=== PATIENT | male | born 1955 | race Caucasian/White ===

== ENCOUNTER 2022-08-15 11:19 | Inpatient (IN) ==
[2022-08-15] MEDS ORDERED: NS 1,000 ML IV 1,000 ML IV SCH (12:23)
[2022-08-15] MEDS ORDERED: XOPENEX 1.25 MG/3 ML NEBULE NEB SCH (12:23)
[2022-08-15] MEDS ORDERED: XOPENEX 1.25 MG/3 ML NEBULE NEB PRN (12:23)
[2022-08-15] MEDS ORDERED: Atrovent NEB TX 0.02% NEB SCH (12:23)
[2022-08-15] MEDS ORDERED: ROCEPHIN 1 GRAM IV PREMIX 1 G/50 ML IV.SOLN. IV SCH (12:23)
[2022-08-15] MEDS: ROCEPHIN VIAL 1 GRAM 1 G in NS 100 ML IV 100 ML IV SCH (12:55)
[2022-08-15] MEDS: TYLENOL 325 MG TAB PO PRN ×2 (12:55→23:25)
[2022-08-15 13:14] LABS: ABG BASE EXCESS 6.2 mmol/L (-2.0-2.0); ABG HCO3 29.5 mmol/L (22-26)
[2022-08-15 13:17] LABS: BASOPHILS # (AUTO) 0.2 X10^3/uL (0.0-0.1); BASOPHILS % (AUTO) 0.7 % (0.2-1.0); EOSINOPHILS # (AUTO) 0.1 x10^3/uL (0.0-0.2); EOSINOPHILS % (AUTO) 0.2 % (0.9-2.9); HEMATOCRIT 33.6 % (42.0-54.0); HEMOGLOBIN 11.1 g/dL (13.5-18.0); LYMPHOCYTES # (AUTO) 1.9 X10^3/uL (1.3-2.9); LYMPHOCYTES % (AUTO) 6.9 % (21.0-51.0); MEAN CORPUSCULAR HEMOGLOBIN 29.7 pg (27.0-34.0); MEAN CORPUSCULAR HGB CONC 33.2 g/dL (33.0-35.0); MEAN CORPUSCULAR VOLUME 89.6 fL (80.0-100.0); MONOCYTES # (AUTO) 3.1 x10^3/uL (0.3-0.8); MONOCYTES % (AUTO) 11.4 % (0.0-13.0); NEUTROPHILS # (AUTO) 21.9 x10^3/uL (2.2-4.8); NEUTROPHILS % (AUTO) 80.8 % (42.0-75.0); RED BLOOD COUNT 3.75 X10^6/uL (4.7-6.0); RED CELL DISTRIBUTION WIDTH 14.5 % (11.6-16.5); WHITE BLOOD COUNT 27.1 X10^3/uL (3.6-10.0)
[2022-08-15 13:31] LABS: PLATELET MORPHOLOGY COMMENT NORMAL (NORMAL)
[2022-08-15] MEDS: PULMICORT NEB TX 0.5 MG NEB SCH ×2 (13:33→20:15)
[2022-08-15] MEDS: BROVANA IN SCH ×2 (13:35→20:15)
[2022-08-15] MEDS: ZITHROMAX INJ 500 MG VIAL 500 MG in NS 250 ML IV 250 ML IV SCH (13:45)
[2022-08-15 14:06] LABS: ALBUMIN 1.4 g/dL (3.4-5.0); CALCIUM 7.5 mg/dL (8.5-10.1); CARBON DIOXIDE 28.4 mmol/L (21-32); COR CA(FOR HYPOALB) 9.6 mg/dL (8.5-10.1); CREATININE 1.74 mg/dL (0.70-1.30); TOTAL PROTEIN 5.9 g/dL (6.4-8.2)
[2022-08-15] MEDS ORDERED: NS 1,000 ML IV 1,000 ML IV ONE ×4 (14:40→20:32)
[2022-08-15 15:50] LABS: BILIRUBIN,URINE 2+ (NEGATIVE); BLOOD/HEMOGLOBIN,URINE 1+ (NEGATIVE); GLUCOSE, URINE NEGATIVE (NEGATIVE); KETONES,URINE NEGATIVE (NEGATIVE); LEUKOCYTE ESTERASE ,URINE NEGATIVE (NEGATIVE); NITRITES,URINE NEGATIVE (NEGATIVE); PROTEIN,URINE 2+ (NEGATIVE); UROBILINOGEN,URINE 4+ (NORMAL)
[2022-08-15 16:08] LABS: APPEARANCE,URINE CLOUDY (CLEAR); COLOR,URINE AMBER (YELLOW)
[2022-08-15 16:32] LABS: BACTERIA,URINE TRACE /HPF (NEGATIVE); RBC,URINE 0-2 /HPF (0-3); SQUAMOUS EPITHELIAL CELL,UR RARE /HPF (NEGATIVE)
[2022-08-15 16:33] LABS: RENAL EPITHELIAL CELLS,URINE RARE /HPF (NEGATIVE)
[2022-08-15 16:35] LABS: GRANULAR CASTS,URINE MODERATE /LPF (NEGATIVE)
[2022-08-15] MEDS ORDERED: XOPENEX 1.25 MG/3 ML NEBULE NEB ONE (16:36)
[2022-08-15] MEDS ORDERED: LEVOPHED 8 MG/250 ML IV *PREMIX 8 MG/250 ML PLAST..BAG IV PRN ×2 (17:03→22:35)
[2022-08-15] MEDS: XOPENEX 1.25 MG/3 ML NEBULE NEB SCH (17:04)
--- NOTE | 2022-08-15 17:06 | RAD ---
CHEST, 1 VIEWHISTORY: COPD EXACERBATIONStudy: AP view of the chest.Comparison:NoneFindings:The cardiomediastinal silhouette is normal. Multifocal opacities in the right lung. Osseous structures demonstrate no acute abnormality. Bilateral hyperexpansion and interstitial prominence.IMPRESSION:1. Multifocal opacities in the right lung concerning for pneumonia.2. Findings of COPD.Electronically signed by: PURA PATINO (Aug 15, 2022 17:05:46)
[2022-08-15] MEDS ORDERED: D5W 100 ML IV 100 ML IV ONE (20:58)
[2022-08-15] MEDS ORDERED: TOBRAMYCIN SULFATE ONE (20:58)
[2022-08-15] MEDS ORDERED: DILANTIN CAP 100 MG EXT REL PO ONE (20:58)
[2022-08-15] MEDS ORDERED: DILANTIN INFATAB 50 MG PO SCH (21:00)
[2022-08-15] MEDS: ARICEPT TAB 10 MG PO SCH (21:06)
[2022-08-15] MEDS: DILANTIN CAP 100 MG EXT REL PO SCH (21:06)
[2022-08-15] MEDS: BUSPAR PO SCH (21:07)
[2022-08-15] MEDS: TOBRAMYCIN SULFATE 80 MG in NS 100 ML IV 100 ML IV SCH (21:19)
[2022-08-15] MEDS ORDERED: PATIENT'S HOME MEDICATION (Alprazolam 0.5 mg tablet) PO PRN (21:36)
[2022-08-15] MEDS: NS 1,000 ML IV 1,000 ML IV SCH (21:38)
--- NOTE | 2022-08-15 22:18 | DR.H&P ---
H&P - History & Physical for Day of: H&P Date: 08/15/22 - Chief Complaint Chief Complaint: SICK X 2 WEEKS, WEAK, CONGESTED COUGH, nOT EATING - History of Present Illness History of Present Illness: The patient is a 66yo WM who presented to [facility] with his brother and [id number] with complaints of not feeling well x 2 weeks. States he had been sick at his sister's house for almost a week with URI symptoms prior to coming back to their house. Complains of pleuric chest pain. State he has been in the bed for the last week. States that he is not eating. State he has not been smoking either. Does complain of congested cough but not productive. State he hs not had fever. Denies family he has been with as being sick. Does state that he is so weak he can hardly walk. Family is concerned due to weight loss. Patient has lost 3 lbs in 3 mths. Patient has history of TBI and seizures, which have been stable. No other complaints voiced. - Past Medical History Past Medical History: Hypertension, Seizures Additional Medical History: TBI - Past Surgical History Surgical History: Spleenectomy, Other - Family History Family Medical History: Cancer, Hypertension - Social History Does patient currently use any type of tobacco product: Yes Have you used tobacco products in the last 12 months: Yes Type of Tobacco Use: Cigarettes Does any household member use tobacco: Yes Alcohol Use: None Drug Use: None Prescription drug monitoring program results: PDMP reviewed and no concerns identified - Medications Home Medications: No Known Allergies Allergy (Verified 08/15/22 12:33) CONTINUE taking the following medications alprazolam 0.5 mg tablet 0.5 mg PO QDAY PRN 08/15/22 [History] buspirone 10 mg tablet 10 mg PO BID 08/15/22 [History] donepezil 10 mg tablet 10 mg PO DAILY 08/15/22 [History] gabapentin 800 mg tablet 800 mg PO BID 08/15/22 [History] loratadine 10 mg tablet 10 mg PO DAILY 08/15/22 [History] losartan 25 mg tablet 25 mg PO DAILY 08/15/22 [History] meloxicam 15 mg tablet 15 mg PO DAILY 08/15/22 [History] omeprazole 40 mg capsule,delayed release 40 mg PO DAILY 08/15/22 [History] phenytoin sodium extended 100 mg capsule 100 mg PO BID 08/15/22 [History] tamsulosin 0.4 mg capsule 0.4 mg PO HS 08/15/22 [History] - Review of Systems Constitutional: Weakness, Malaise Eyes: No Symptoms Reported ENT: No Symptoms Reported Respiratory: Cough, Wheezing Cardiovascular: Chest Pain Gastrointestinal: No Symptoms Reported Genitourinary: No Symptoms Reported Musculoskeletal: No Symptoms Reported Skin: No Symptoms Reported Neurological: Weakness - Physical Exam Vital Signs: Temperature 98.5 F Pulse Rate 103 Respiratory Rate 29 Blood Pressure 88/54 O2 Sat by Pulse Oximetry 94 Oriented: Normal Eyes: Normal Ear: Normal Nose: Normal Throat: Normal Respiratory: LLL Diminished, RLL Rhonchi, RUL Exp. Wheeze Cardiovascular: Tachycardia : Normal Auscultation: Bowel Sounds: Normal Palpation: Normal Tenderness: Normal Skin: Decreased Turgur Musculoskeletal: Normal, Back:Lumbar Psychiatric: Normal Mood Description: Calm Speech Pattern: Delayed - Assessment/Plan (1) Sepsis Status: Acute Plan: IV Bolus/Hydration, IV antibiotic, Oxygen replacement, Monitor labs, Monitor vital signs (2) Pneumonia Qualifiers: Laterality: right Lung location: lower lobe of lung Status: Acute Plan: IV anibiotics. Oxygen therapy. (3) Hypotension Status: Acute Plan: IV bolus/hydration. Hold home BP meds, IV antibiotics (4) Acute kidney failure Status: Acute Plan: IV hydration, Monitor labs. (5) Acute respiratory failure with hypoxia Status: Acute Plan: Oxygen supplementation, Monitor ABGs - Review Patient was examined?: Yes - Allergies Allergies/Adverse Reactions: Allergies Allergy/AdvReac Type Severity Reaction Status Date / Time No Known Allergies Allergy Verified 08/15/22 12:33
[2022-08-15] MEDS ORDERED: LEVOPHED 8 MG/250 ML IV *PREMIX 8 MG/250 ML PLAST..BAG IV ONE (22:38)
[2022-08-15] MEDS ORDERED: MORPHINE SULFATE INJ 2 MG INJ IVP ONE (23:16)
[2022-08-15] MEDS ORDERED: MORPHINE SULFATE INJ 2 MG INJ ONE (23:18)
[2022-08-16] MEDS: XOPENEX 1.25 MG/3 ML NEBULE NEB SCH ×5 (00:12→18:14)
[2022-08-16 02:18] LABS: EOSINOPHILS # (AUTO) 0.1 x10^3/uL (0.0-0.2); EOSINOPHILS % (AUTO) 0.2 % (0.9-2.9); HEMOGLOBIN 10.1 g/dL (13.5-18.0)
[2022-08-16 02:23] LABS: BASOPHILS # (AUTO) 0.4 X10^3/uL (0.0-0.1); BASOPHILS % (AUTO) 1.4 % (0.2-1.0); HEMATOCRIT 30.5 % (42.0-54.0); LYMPHOCYTES # (AUTO) 2.8 X10^3/uL (1.3-2.9); MEAN CORPUSCULAR HEMOGLOBIN 29.5 pg (27.0-34.0); MEAN CORPUSCULAR HGB CONC 33.1 g/dL (33.0-35.0); MEAN CORPUSCULAR VOLUME 89.1 fL (80.0-100.0); MEAN PLATELET VOLUME 8.5 fL (7.4-11.0); MONOCYTES # (AUTO) 3.1 x10^3/uL (0.3-0.8); MONOCYTES % (AUTO) 9.9 % (0.0-13.0); NEUTROPHILS # (AUTO) 25.2 x10^3/uL (2.2-4.8); NEUTROPHILS % (AUTO) 79.5 % (42.0-75.0); RED BLOOD COUNT 3.43 X10^6/uL (4.7-6.0); RED CELL DISTRIBUTION WIDTH 14.4 % (11.6-16.5)
[2022-08-16 02:26] LABS: ALBUMIN 1.1 g/dL (3.4-5.0); CALCIUM 6.7 mg/dL (8.5-10.1); CREATININE 1.59 mg/dL (0.70-1.30); TOTAL PROTEIN 5.1 g/dL (6.4-8.2)
[2022-08-16 02:35] LABS: WHITE BLOOD COUNT 31.7 X10^3/uL (3.6-10.0)
[2022-08-16 02:46] LABS: BAND NEUTROPHILS % 5 % (0-10); PLATELET MORPHOLOGY COMMENT NORMAL (NORMAL); TARGET CELLS SLIGHT
[2022-08-16 02:48] LABS: BURR CELLS SLIGHT
[2022-08-16] MEDS: MAGNESIUM SULFATE 1 GRAM/100 mL PREMIX 1 G/100 ML BAG IV PRN ×6 (04:38→13:30)
--- NOTE | 2022-08-16 06:42 | RAD ---
HISTORYCOPD EXACERBATIONSTUDYCHEST, 1 EUOSAOLBAUGNRE68/02/2023.TECHNIQUEPA or AP view of the chestFINDINGSCardiac and mediastinal contours are within normal limits. Lung hyper expansion re-demonstrated. There is a moderate right pleural effusion. Diffuse bilateral interstitial opacities. Right mid to lower lung airspace opacities. No pneumothorax.IMPRESSIONCOPD. Development of moderate right pleural effusion. Right base airspace opacities suspicious for pneumonia. Recommend follow up imaging to document resolution after appropriate treatment.If there is need to evaluate for pulmonary nodules, CT chest is recommended.Electronically signed by: John Matute (Aug 16, 2022 06:40:55)
[2022-08-16 08:42] LABS: ABG ALLEN TEST POS; ABG BASE EXCESS 2.4 mmol/L (-2.0-2.0); ABG HCO3 26.4 mmol/L (22-26)
[2022-08-16] MEDS: PULMICORT NEB TX 0.5 MG NEB SCH ×2 (08:54→20:10)
[2022-08-16] MEDS: BROVANA IN SCH ×2 (08:54→20:10)
[2022-08-16] MEDS ORDERED: BUSPAR PO SCH (09:00)
[2022-08-16] MEDS ORDERED: NEURONTIN CAP 400 MG PO SCH (09:00)
[2022-08-16] MEDS ORDERED: MOBIC TAB 15 MG PO SCH (09:00)
[2022-08-16] MEDS ORDERED: PriLOSEC PO SCH (09:00)
[2022-08-16] MEDS ORDERED: DILANTIN CAP 100 MG EXT REL PO SCH (09:00)
[2022-08-16] MEDS ORDERED: ARICEPT TAB 10 MG PO SCH (09:00)
[2022-08-16] MEDS ORDERED: COZAAR PO SCH (09:00)
[2022-08-16] MEDS ORDERED: CLARITIN PO SCH (09:00)
[2022-08-16] MEDS ORDERED: LASIX IVP ONE (09:12)
[2022-08-16] MEDS: ROCEPHIN VIAL 1 GRAM 1 G in NS 100 ML IV 100 ML IV SCH (10:16)
[2022-08-16] MEDS: PriLOSEC PO SCH (10:19)
[2022-08-16] MEDS: MOBIC TAB 15 MG PO SCH (10:19)
[2022-08-16] MEDS: ROBITUSSIN DM PO SCH ×4 (10:19→20:11)
[2022-08-16] MEDS: TOBRAMYCIN SULFATE 80 MG in NS 100 ML IV 100 ML IV SCH ×2 (10:20→20:25)
[2022-08-16] MEDS: DILANTIN CAP 100 MG EXT REL PO SCH ×2 (10:20→20:12)
[2022-08-16] MEDS: NS 1,000 ML IV 1,000 ML IV SCH (10:20)
[2022-08-16] MEDS: ZITHROMAX INJ 500 MG VIAL 500 MG in NS 250 ML IV 250 ML IV SCH (10:20)
[2022-08-16] MEDS: CLARITIN PO SCH (10:20)
[2022-08-16] MEDS: XANAX PO PRN (10:20)
[2022-08-16] MEDS: BUSPAR PO SCH ×2 (10:21→20:25)
[2022-08-16] MEDS: NICOTINE PATCH TD SCH (12:16)
[2022-08-16] MEDS: LOVENOX INJ 40 MG SYR SC SCH (12:16)
[2022-08-16] MEDS ORDERED: POTASSIUM CHLORIDE LIQ 20 MEQ UDC PO PRN (13:35)
[2022-08-16] MEDS ORDERED: K-RIDER 10 MEQ/NS 100 ML 10 MEQ/100 ML BAG IV PRN (13:35)
[2022-08-16] MEDS ORDERED: MICRO K EXTEN CAP 10 MEQ PO PRN (13:35)
[2022-08-16] MEDS ORDERED: POTASSIUM CHL 40 MEQ/NS 0.45% 500 ML IV PRN (13:35)
[2022-08-16] MEDS ORDERED: POTASSIUM CHL 60 MEQ/NS 0.45% 500 ML IV PRN (13:35)
[2022-08-16] MEDS ORDERED: KLOR-CON PO PRN (13:35)
[2022-08-16 14:50] LABS: AMYLASE 28 Units/L (25-115); LIPASE 149 Units/L (73-393)
[2022-08-16 16:00] VITALS: BMI 19.2
--- NOTE | 2022-08-16 16:42 | RAD ---
HISTORYABD PAIN, HYPOTENSIONSTUDYX-ray abdomen series, one view chest and two views abdomenCOMPARISONChest x-ray from same day and report of prior CT abdomen 03/22/2021, images are not availableFINDINGSPersistent moderate right pleural effusion is probably loculated right laterally. Probable areas of atelectasis are present in the right lung but there may be pneumonia, also. Abnormal interstitial densities are seen in the lower left lung that are concerning for possible chronic interstitial lung disease. Similar findings are seen in both upper lungs but are less prominent in the upper lungs. Heart is normal in size.No evidence of free intraperitoneal air. Likely prior cholecystectomy. Multiple left renal stones are seen. Most of these are small but there is a 1.1 cm stone near the region of the left renal pelvis. There are likely a few tiny right renal stones, also. Phleboliths are seen in the left side of the abdomen. Lower pelvis is not completely included on the study.Mild increased air is seen in the small bowel and colon without dilation. There may be mild diffuse constipation. There is calcification of the abdominal aorta which appears enlarged. 3.1 cm aneurysm is described on prior CT report. Suggest correlation with aortic ultrasound to evaluate the aneurysm.IMPRESSIONModerate, likely loculated right pleural effusion. Associated right-sided atelectasis and/or pneumonia.Probable moderate chronic interstitial lung disease changes, greatest at the left lung base.Left-sided nephrolithiasis and probable right-sided nephrolithiasis.Possible mild constipation.Calcification within prominent distal abdominal aorta. Recommend further evaluation with aortic ultrasound to evaluate aortic aneurysm. A 3.1 cm abdominal aortic aneurysm was described on prior 2020 CT exam.Electronically signed by: Kody Falk (Aug 16, 2022 16:41:41)
[2022-08-16] MEDS: ARICEPT TAB 10 MG PO SCH (20:11)
[2022-08-16] MEDS: TYLENOL 325 MG TAB PO PRN (20:14)
[2022-08-16] MEDS ORDERED: MORPHINE SULFATE INJ 2 MG INJ ONE (20:52)
[2022-08-16] MEDS: MORPHINE SULFATE INJ 2 MG INJ IVP PRN (20:54)
[2022-08-16] MEDS ORDERED: FLOMAX PO SCH (21:00)
[2022-08-17] MEDS: XOPENEX 1.25 MG/3 ML NEBULE NEB SCH ×4 (00:04→17:34)
[2022-08-17] MEDS: NS 1,000 ML IV 1,000 ML IV SCH ×2 (02:19→11:40)
[2022-08-17 05:21] LABS: BASOPHILS # (AUTO) 0.4 X10^3/uL (0.0-0.1); BASOPHILS % (AUTO) 1.3 % (0.2-1.0); EOSINOPHILS # (AUTO) 0.3 x10^3/uL (0.0-0.2); EOSINOPHILS % (AUTO) 1.1 % (0.9-2.9); HEMATOCRIT 30.4 % (42.0-54.0); HEMOGLOBIN 10.1 g/dL (13.5-18.0); LYMPHOCYTES # (AUTO) 3.5 X10^3/uL (1.3-2.9); MEAN CORPUSCULAR HEMOGLOBIN 29.4 pg (27.0-34.0); MEAN CORPUSCULAR HGB CONC 33.2 g/dL (33.0-35.0); MEAN CORPUSCULAR VOLUME 88.7 fL (80.0-100.0); MONOCYTES # (AUTO) 3.7 x10^3/uL (0.3-0.8); MONOCYTES % (AUTO) 11.6 % (0.0-13.0); NEUTROPHILS # (AUTO) 23.7 x10^3/uL (2.2-4.8); RED BLOOD COUNT 3.43 X10^6/uL (4.7-6.0); RED CELL DISTRIBUTION WIDTH 14.5 % (11.6-16.5)
[2022-08-17 05:29] LABS: ALANINE AMINOTRANSFERASE 7 Units/L (12-78); ALBUMIN 1.1 g/dL (3.4-5.0); ALKALINE PHOSPHATASE 80 Units/L (46-116); ASPARTATE AMINO TRANSFERASE 18 Units/L (15-37); BLOOD UREA NITROGEN 19 mg/dL (7-18); CALCIUM 7.7 mg/dL (8.5-10.1); CARBON DIOXIDE 28.4 mmol/L (21-32); CHLORIDE 104 mmol/L (98-107); MAGNESIUM 1.8 mg/dL (2.0-2.9); SODIUM 139 mmol/L (136-145); TOTAL PROTEIN 5.2 g/dL (6.4-8.2); WHITE BLOOD COUNT 31.6 X10^3/uL (3.6-10.0); eGFR NON BLACK RACES 59 (>60)
[2022-08-17 05:58] LABS: BAND NEUTROPHILS % 5 % (0-10)
[2022-08-17 06:00] LABS: PLATELET MORPHOLOGY COMMENT NORMAL (NORMAL)
[2022-08-17 06:01] LABS: BURR CELLS SLIGHT; HOWELL-JOLLY BODIES SLIGHT; TARGET CELLS 1+
[2022-08-17] MEDS: TYLENOL 325 MG TAB PO PRN (08:12)
[2022-08-17] MEDS: DILANTIN CAP 100 MG EXT REL PO SCH ×2 (08:14→21:06)
[2022-08-17] MEDS: CLARITIN PO SCH (08:15)
[2022-08-17] MEDS: XANAX PO PRN (08:15)
[2022-08-17] MEDS: ROBITUSSIN DM PO SCH ×4 (08:15→21:06)
[2022-08-17] MEDS: BUSPAR PO SCH ×2 (08:16→21:06)
[2022-08-17] MEDS: MOBIC TAB 15 MG PO SCH (08:17)
[2022-08-17] MEDS: LOVENOX INJ 40 MG SYR SC SCH (08:17)
[2022-08-17] MEDS: PriLOSEC PO SCH (08:17)
[2022-08-17] MEDS: ROCEPHIN VIAL 1 GRAM 1 G in NS 100 ML IV 100 ML IV SCH (08:18)
[2022-08-17] MEDS: ZITHROMAX INJ 500 MG VIAL 500 MG in NS 250 ML IV 250 ML IV SCH (08:18)
[2022-08-17] MEDS: NICOTINE PATCH TD SCH (08:19)
[2022-08-17] MEDS: MAGNESIUM SULFATE 1 GRAM/100 mL PREMIX 1 G/100 ML BAG IV PRN ×2 (08:22→13:00)
[2022-08-17] MEDS ORDERED: PHARMACY COMMENT IV NR ×2 (08:30→10:30)
[2022-08-17] MEDS: MILK OF MAGNESIA PO SCH ×2 (08:49→21:06)
[2022-08-17] MEDS: TOBRAMYCIN SULFATE 80 MG in NS 100 ML IV 100 ML IV SCH (09:05)
[2022-08-17] MEDS: PULMICORT NEB TX 0.5 MG NEB SCH ×2 (09:07→20:10)
[2022-08-17] MEDS: BROVANA IN SCH ×2 (09:07→20:10)
[2022-08-17 09:14] LABS: CREATININE 1.44 mg/dL (0.70-1.30)
[2022-08-17 09:16] LABS: TOBRAMYCIN,TROUGH 2.4 ug/mL (0-2)
[2022-08-17] MEDS: COLACE CAP 100 MG PO SCH ×2 (09:50→21:06)
[2022-08-17] MEDS: ZOSYN VIAL 3.375 GRAMS 3.375 G in NS 100 ML IV 100 ML IV SCH ×3 (11:39→21:07)
[2022-08-17] MEDS: LEVAQUIN PREMIX IV 500 MG 500 MG/100 ML BAG IV SCH (11:40)
--- NOTE | 2022-08-17 11:41 | CT ---
HISTORYABDOMINAL PAIN LEUKOCYTOSIS UNKNOWN PNEUMONIA TACHYCARDIA HYPOTENSIONSTUDYABDOMEN/PELVIS WITH CONCOMPARISONNoneTECHNIQUEMultiple axial images of the abdomen and pelvis were obtained from the lung bases to the pubic symphysis after the administration of IV contrast. Dose reduction techniques including Automated Exposure Control (AEC) and adjustment of mA and kV were utilized.FINDINGSThe visualized portions of the lung bases demonstrates a small effusion on the left and a moderate sized effusion on the right which appears loculated with associated consolidation in the right lung base which is incompletely evaluated but is concerning for pneumonia.. The kidneys demonstrate multiple bilateral stones with a large stone in the left UPJ on the left measuring 9.5 mm. There is also a small left renal cyst. The spleen appears to been surgically resected. The solid organs otherwise unremarkable.. The gallbladder is not seen and may be surgically absent.. No significant mesenteric lymphadenopathy or stranding can be observed. No free fluid or free air is seen within the abdomen. There is atherosclerosis of the aorta with the infrarenal aortic aneurysm measuring 3.6 by 3.7 cm. No bowel wall thickening or bowel dilatation is present. The colon is unremarkable. Specifically, there is no diverticulosis noted within the sigmoid colon. The appendix is not definitively seen but there are no secondary signs to suggest appendicitis. The urinary bladder demonstrates a for catheter in place with associated gas in its lumen probably iatrogenic. The bony structures are grossly intact.IMPRESSIONInfrarenal aortic aneurysm as above.Bilateral nephrolithiasis with a large 9.5 mm UPJ stone the leftLoculated right-sided pleural effusion with associated consolidation probably due to pneumonia. There is small effusion on the left as wellElectronically signed by: ZAIN ALVAREZ (Aug 17, 2022 11:39:12)
[2022-08-17] MEDS ORDERED: LASIX IVP ONE (13:05)
[2022-08-17] MEDS: MORPHINE SULFATE INJ 2 MG INJ IVP PRN ×2 (14:55→21:43)
[2022-08-17] MEDS: FLOMAX PO SCH (21:06)
[2022-08-17] MEDS: NEURONTIN CAP 400 MG PO SCH (21:06)
[2022-08-17] MEDS: ARICEPT TAB 10 MG PO SCH (21:07)
[2022-08-18] MEDS: XOPENEX 1.25 MG/3 ML NEBULE NEB SCH ×4 (00:25→18:00)
[2022-08-18] MEDS: NS 1,000 ML IV 1,000 ML IV SCH ×3 (00:49→13:37)
[2022-08-18] MEDS: ZOSYN VIAL 3.375 GRAMS 3.375 G in NS 100 ML IV 100 ML IV SCH ×3 (05:08→21:36)
[2022-08-18 05:10] LABS: BASOPHILS # (AUTO) 0.1 X10^3/uL (0.0-0.1); BASOPHILS % (AUTO) 0.5 % (0.2-1.0); EOSINOPHILS # (AUTO) 0.4 x10^3/uL (0.0-0.2); EOSINOPHILS % (AUTO) 1.8 % (0.9-2.9); HEMATOCRIT 28.8 % (42.0-54.0); HEMOGLOBIN 9.8 g/dL (13.5-18.0); LYMPHOCYTES # (AUTO) 3.6 X10^3/uL (1.3-2.9); LYMPHOCYTES % (AUTO) 14.6 % (21.0-51.0); MEAN CORPUSCULAR HEMOGLOBIN 30.2 pg (27.0-34.0); MEAN CORPUSCULAR HGB CONC 34.2 g/dL (33.0-35.0); MEAN CORPUSCULAR VOLUME 88.4 fL (80.0-100.0); MONOCYTES # (AUTO) 2.4 x10^3/uL (0.3-0.8); NEUTROPHILS # (AUTO) 17.9 x10^3/uL (2.2-4.8); NEUTROPHILS % (AUTO) 73.1 % (42.0-75.0); RED BLOOD COUNT 3.25 X10^6/uL (4.7-6.0); RED CELL DISTRIBUTION WIDTH 14.5 % (11.6-16.5); WHITE BLOOD COUNT 24.5 X10^3/uL (3.6-10.0)
[2022-08-18 05:25] LABS: ALANINE AMINOTRANSFERASE < 6 Units/L (12-78); ALKALINE PHOSPHATASE 95 Units/L (46-116); ASPARTATE AMINO TRANSFERASE 22 Units/L (15-37); BLOOD UREA NITROGEN 16 mg/dL (7-18); CALCIUM 7.9 mg/dL (8.5-10.1); CARBON DIOXIDE 29.2 mmol/L (21-32); CHLORIDE 105 mmol/L (98-107); COR CA(FOR HYPOALB) 10.3 mg/dL (8.5-10.1); CREATININE 1.23 mg/dL (0.70-1.30); MAGNESIUM 1.4 mg/dL (2.0-2.9); SODIUM 141 mmol/L (136-145); TOTAL PROTEIN 5.1 g/dL (6.4-8.2); eGFR NON BLACK RACES > 60 (>60)
[2022-08-18 06:00] LABS: BAND NEUTROPHILS % 2 % (0-10)
[2022-08-18 06:01] LABS: PLATELET MORPHOLOGY COMMENT NORMAL (NORMAL)
[2022-08-18 06:02] LABS: BURR CELLS SLIGHT; TARGET CELLS 1+
[2022-08-18] MEDS: MAGNESIUM SULFATE 1 GRAM/100 mL PREMIX 1 G/100 ML BAG IV PRN ×4 (06:17→15:59)
[2022-08-18] MEDS: PULMICORT NEB TX 0.5 MG NEB SCH ×2 (08:35→21:15)
[2022-08-18] MEDS: BROVANA IN SCH ×2 (08:35→21:15)
[2022-08-18] MEDS: ZITHROMAX INJ 500 MG VIAL 500 MG in NS 250 ML IV 250 ML IV SCH (08:47)
[2022-08-18] MEDS: DILANTIN CAP 100 MG EXT REL PO SCH ×2 (08:48→21:37)
[2022-08-18] MEDS: ROBITUSSIN DM PO SCH ×4 (08:48→21:37)
[2022-08-18] MEDS: MOBIC TAB 15 MG PO SCH (08:48)
[2022-08-18] MEDS: MILK OF MAGNESIA PO SCH ×2 (08:48→21:37)
[2022-08-18] MEDS: NEURONTIN CAP 400 MG PO SCH ×2 (08:48→21:37)
[2022-08-18] MEDS: COLACE CAP 100 MG PO SCH ×2 (08:48→21:38)
[2022-08-18] MEDS: LEVAQUIN PREMIX IV 500 MG 500 MG/100 ML BAG IV SCH (08:48)
[2022-08-18] MEDS: NICOTINE PATCH TD SCH (08:49)
[2022-08-18] MEDS: PriLOSEC PO SCH (08:49)
[2022-08-18] MEDS: K-DUR TAB 20 MEQ PO PRN (08:50)
[2022-08-18] MEDS: CLARITIN PO SCH (08:50)
[2022-08-18] MEDS: LOVENOX INJ 40 MG SYR SC SCH (08:50)
[2022-08-18] MEDS: BUSPAR PO SCH ×2 (08:52→21:38)
[2022-08-18] MEDS ORDERED: DULCOLAX SUPPOSITORY 10 MG RECTAL ONE (11:35)
[2022-08-18] MEDS: LASIX IVP ONE ×2 (13:36→15:55)
[2022-08-18] MEDS ORDERED: LASIX ONE (15:43)
[2022-08-18] MEDS: FLOMAX PO SCH (21:37)
[2022-08-18] MEDS: ARICEPT TAB 10 MG PO SCH (21:37)
[2022-08-18] MEDS: MORPHINE SULFATE INJ 2 MG INJ IVP PRN (21:39)
[2022-08-19] MEDS: NS 1,000 ML IV 1,000 ML IV SCH ×2 (04:38→17:53)
[2022-08-19] MEDS: ZOSYN VIAL 3.375 GRAMS 3.375 G in NS 100 ML IV 100 ML IV SCH ×3 (05:03→21:26)
[2022-08-19 05:12] LABS: HEMOGLOBIN 10.5 g/dL (13.5-18.0); RED BLOOD COUNT 3.54 X10^6/uL (4.7-6.0)
[2022-08-19 05:21] LABS: BASOPHILS # (AUTO) 0.3 X10^3/uL (0.0-0.1); BASOPHILS % (AUTO) 1.3 % (0.2-1.0); EOSINOPHILS # (AUTO) 0.4 x10^3/uL (0.0-0.2); EOSINOPHILS % (AUTO) 1.7 % (0.9-2.9); HEMATOCRIT 31.1 % (42.0-54.0); LYMPHOCYTES # (AUTO) 3.5 X10^3/uL (1.3-2.9); LYMPHOCYTES % (AUTO) 16.2 % (21.0-51.0); MEAN CORPUSCULAR HEMOGLOBIN 29.6 pg (27.0-34.0); MEAN CORPUSCULAR HGB CONC 33.7 g/dL (33.0-35.0); MEAN CORPUSCULAR VOLUME 87.9 fL (80.0-100.0); MEAN PLATELET VOLUME 8.3 fL (7.4-11.0); MONOCYTES # (AUTO) 2.9 x10^3/uL (0.3-0.8); MONOCYTES % (AUTO) 13.4 % (0.0-13.0); NEUTROPHILS # (AUTO) 14.7 x10^3/uL (2.2-4.8); NEUTROPHILS % (AUTO) 67.4 % (42.0-75.0); RED CELL DISTRIBUTION WIDTH 14.2 % (11.6-16.5); WHITE BLOOD COUNT 21.8 X10^3/uL (3.6-10.0)
[2022-08-19 05:22] LABS: ALANINE AMINOTRANSFERASE 6 Units/L (12-78); ALBUMIN 1.1 g/dL (3.4-5.0); ALKALINE PHOSPHATASE 96 Units/L (46-116); ASPARTATE AMINO TRANSFERASE 22 Units/L (15-37); BLOOD UREA NITROGEN 16 mg/dL (7-18); CARBON DIOXIDE 30.4 mmol/L (21-32); CHLORIDE 104 mmol/L (98-107); COR CA(FOR HYPOALB) 10.3 mg/dL (8.5-10.1); MAGNESIUM 1.8 mg/dL (2.0-2.9); SODIUM 141 mmol/L (136-145); TOTAL PROTEIN 5.4 g/dL (6.4-8.2); eGFR NON BLACK RACES > 60 (>60)
[2022-08-19 05:39] LABS: PLATELET MORPHOLOGY COMMENT NORMAL (NORMAL); TARGET CELLS 1+
[2022-08-19] MEDS: XOPENEX 1.25 MG/3 ML NEBULE NEB SCH ×4 (05:44→17:30)
[2022-08-19] MEDS: MAGNESIUM SULFATE 1 GRAM/100 mL PREMIX 1 G/100 ML BAG IV PRN (06:09)
[2022-08-19] MEDS: PULMICORT NEB TX 0.5 MG NEB SCH ×2 (08:40→21:30)
[2022-08-19] MEDS: BROVANA IN SCH ×2 (08:40→21:30)
[2022-08-19] MEDS ORDERED: LASIX IVP SCH (09:00)
[2022-08-19] MEDS: MILK OF MAGNESIA PO SCH ×3 (09:16→21:26)
[2022-08-19] MEDS: MOBIC TAB 15 MG PO SCH (09:16)
[2022-08-19] MEDS: COLACE CAP 100 MG PO SCH ×2 (09:16→21:25)
[2022-08-19] MEDS: DILANTIN CAP 100 MG EXT REL PO SCH ×2 (09:16→21:25)
[2022-08-19] MEDS: ROBITUSSIN DM PO SCH ×4 (09:16→21:26)
[2022-08-19] MEDS: NEURONTIN CAP 400 MG PO SCH ×2 (09:17→21:25)
[2022-08-19] MEDS: PriLOSEC PO SCH (09:17)
[2022-08-19] MEDS: ZITHROMAX INJ 500 MG VIAL 500 MG in NS 250 ML IV 250 ML IV SCH (09:18)
[2022-08-19] MEDS: LOVENOX INJ 40 MG SYR SC SCH (09:18)
[2022-08-19] MEDS: NICOTINE PATCH TD SCH (09:19)
[2022-08-19] MEDS: BUSPAR PO SCH ×2 (09:20→21:24)
[2022-08-19] MEDS: LEVAQUIN PREMIX IV 500 MG 500 MG/100 ML BAG IV SCH (09:20)
[2022-08-19] MEDS: CLARITIN PO SCH (09:20)
--- NOTE | 2022-08-19 11:48 | RAD ---
HISTORYPneumonia COPDSTUDYAP chestCOMPARISONFebruary 2022FINDINGSHeart size normal. Mild diffuse bilateral infiltrates right greater than left. Large right pleural density is suggestive of a loculated right pleural effusion, some of which involves the minor fissure. The right upper lung is clear.IMPRESSIONLarge right pleural fluid collection which may be at least partially loculated or contained. Associated asymmetric pulmonary infiltrates concerning for pneumonia.Electronically signed by: GALE HAUSER (Aug 19, 2022 11:47:37)
[2022-08-19] MEDS: MORPHINE SULFATE INJ 2 MG INJ IVP PRN (13:22)
[2022-08-19] MEDS: ARICEPT TAB 10 MG PO SCH (21:24)
[2022-08-19] MEDS: FLOMAX PO SCH (21:25)
[2022-08-20] MEDS: MORPHINE SULFATE INJ 2 MG INJ IVP PRN (04:35)
[2022-08-20 05:21] LABS: BASOPHILS # (AUTO) 0.3 X10^3/uL (0.0-0.1); BASOPHILS % (AUTO) 1.6 % (0.2-1.0); EOSINOPHILS # (AUTO) 0.4 x10^3/uL (0.0-0.2); EOSINOPHILS % (AUTO) 1.9 % (0.9-2.9); HEMATOCRIT 29.7 % (42.0-54.0); HEMOGLOBIN 10.1 g/dL (13.5-18.0); LYMPHOCYTES # (AUTO) 4.4 X10^3/uL (1.3-2.9); LYMPHOCYTES % (AUTO) 22.6 % (21.0-51.0); MEAN CORPUSCULAR HEMOGLOBIN 29.9 pg (27.0-34.0); MEAN CORPUSCULAR HGB CONC 33.8 g/dL (33.0-35.0); MEAN CORPUSCULAR VOLUME 88.4 fL (80.0-100.0); MEAN PLATELET VOLUME 8.5 fL (7.4-11.0); MONOCYTES # (AUTO) 2.9 x10^3/uL (0.3-0.8); MONOCYTES % (AUTO) 14.9 % (0.0-13.0); NEUTROPHILS # (AUTO) 11.4 x10^3/uL (2.2-4.8); RED BLOOD COUNT 3.36 X10^6/uL (4.7-6.0); RED CELL DISTRIBUTION WIDTH 14.5 % (11.6-16.5); WHITE BLOOD COUNT 19.4 X10^3/uL (3.6-10.0)
[2022-08-20 05:36] LABS: ALANINE AMINOTRANSFERASE 6 Units/L (12-78); ALKALINE PHOSPHATASE 79 Units/L (46-116); ASPARTATE AMINO TRANSFERASE 21 Units/L (15-37); BLOOD UREA NITROGEN 16 mg/dL (7-18); CARBON DIOXIDE 32.3 mmol/L (21-32); CHLORIDE 105 mmol/L (98-107); COR CA(FOR HYPOALB) 10.4 mg/dL (8.5-10.1); COR NA(FOR HYPERGLY) 141 mmol/L (136-145); CREATININE 1.14 mg/dL (0.70-1.30); SODIUM 141 mmol/L (136-145); TOTAL PROTEIN 5.2 g/dL (6.4-8.2); eGFR NON BLACK RACES > 60 (>60)
[2022-08-20] MEDS: XOPENEX 1.25 MG/3 ML NEBULE NEB SCH ×5 (06:00→20:06)
[2022-08-20 06:13] LABS: BAND NEUTROPHILS % 3 % (0-10)
[2022-08-20 06:18] LABS: PLATELET MORPHOLOGY COMMENT NORMAL (NORMAL)
[2022-08-20 06:19] LABS: TARGET CELLS SLIGHT
[2022-08-20] MEDS: NS 1,000 ML IV 1,000 ML IV SCH ×2 (07:32→17:27)
[2022-08-20] MEDS: ZOSYN VIAL 3.375 GRAMS 3.375 G in NS 100 ML IV 100 ML IV SCH ×3 (07:40→21:16)
[2022-08-20] MEDS: PULMICORT NEB TX 0.5 MG NEB SCH ×2 (08:30→20:06)
[2022-08-20] MEDS: BROVANA IN SCH ×2 (08:30→20:07)
[2022-08-20] MEDS: ROBITUSSIN DM PO SCH ×5 (09:12→21:17)
[2022-08-20] MEDS: MILK OF MAGNESIA PO SCH ×3 (09:12→21:16)
[2022-08-20] MEDS: NEURONTIN CAP 400 MG PO SCH ×3 (09:13→21:16)
[2022-08-20 09:14] LABS: CHOL/HDL RATIO 3.1 (0.0-5.0)
[2022-08-20] MEDS: NICOTINE PATCH TD SCH (09:14)
[2022-08-20 09:23] LABS: TOTAL PSA 1.17 ng/mL (0.13-4.0)
[2022-08-20] MEDS: LOVENOX INJ 40 MG SYR SC SCH (09:54)
[2022-08-20] MEDS: COLACE CAP 100 MG PO SCH ×2 (09:55→21:17)
[2022-08-20] MEDS: PriLOSEC PO SCH (09:55)
[2022-08-20] MEDS: CLARITIN PO SCH (09:56)
[2022-08-20] MEDS: DILANTIN CAP 100 MG EXT REL PO SCH ×2 (09:56→21:17)
[2022-08-20] MEDS: BUSPAR PO SCH ×2 (09:56→21:18)
[2022-08-20] MEDS: MOBIC TAB 15 MG PO SCH (09:56)
[2022-08-20] MEDS: LEVAQUIN PREMIX IV 500 MG 500 MG/100 ML BAG IV SCH (10:00)
[2022-08-20] MEDS: ZITHROMAX INJ 500 MG VIAL 500 MG in NS 250 ML IV 250 ML IV SCH (11:07)
[2022-08-20 11:59] LABS: ABG BASE EXCESS 8.7 mmol/L (-2.0-2.0)
[2022-08-20 12:00] LABS: ABG HCO3 34.1 mmol/L (22-26)
[2022-08-20] MEDS: K-DUR TAB 20 MEQ PO PRN (15:51)
--- NOTE | 2022-08-20 16:03 | CT ---
HISTORYR/O RL MASS VS PNEUMONIASTUDYCHEST WITH CONCOMPARISONNone availableAxial images through the chest were performed after the administration of intravenous contrast. CT scan was performed following ALARA (As low as Reasonably Achievable).Coronal and Sagittal reformatted images were performed.FINDINGSThe thyroid gland is no significant enlarged, there is no axillary adenopathy, there is a pretracheal lymph node with mild enhancement measuring 1.2 centimeter, there is also sub carinal lymph node measuring in short axis 8 millimetersThe ascending aorta measures 4 centimeters at the level of the pulmonary root. No pericardial effusions. There is a small left pleural effusionImages through the upper abdomen demonstrate status post cholecystectomy, no adrenal masses. There is a upper pole left renal cyst, there are multiple nonobstructive calculus in the left kidney the spleen is not well seen with and small nodule in the areaThere is and small right pleural effusion extending laterally with loculated appearance; however there is no enhancing of the membranes to suggest a proper empyemaLung windows there is emphysema more severe in the upper lobesThere is a right lower lobe radiopacity with volume loss and central cavitary lesion in the superior segment with fluid level measuring 2.1 centimeters suspicious for necrotizing pneumonia. There is also fluid along the fissure measuring 2.6 x 1.5 centimeters. There is fluid along the medial aspect of the right lower lobe. There are scar in the upper lobes right more than left. There is also mild nodularity along the fissure better seen on coronal image 27 series 2.The left lower lobe demonstrate a patchy pneumonic infiltrate without evidence of enhancement to suggest atelectasisBone windows no evidence of aggressive bone lesions no acute fracturesIMPRESSIONRight lower lobe radiopacity with air-fluid levels suggestive of necrotizing pneumonia and volume loss with a air-fluid level in the superior segment of the right lower lobe fluid along the fissure with mild nodularity.Due to the nodularity along the fissure, follow-up after treatment in 3-6 months is recommended.Small right pleural effusion with medial projection and loculated appearance; however no enhancing of the pleural lining is seen to suggest an empyemaSmall left pleural effusion with patchy pneumoniaEmphysemaMild mediastinal adenopathy.Electronically signed by: Faye Peters (Aug 20, 2022 16:01:08)
[2022-08-20] MEDS: MAGNESIUM SULFATE 1 GRAM/100 mL PREMIX 1 G/100 ML BAG IV PRN ×2 (16:50→17:52)
[2022-08-20] MEDS: ARICEPT TAB 10 MG PO SCH (21:17)
[2022-08-20] MEDS: FLOMAX PO SCH (21:17)
[2022-08-21 04:26] LABS: BASOPHILS # (AUTO) 0.3 X10^3/uL (0.0-0.1); BASOPHILS % (AUTO) 1.3 % (0.2-1.0); EOSINOPHILS # (AUTO) 0.7 x10^3/uL (0.0-0.2); EOSINOPHILS % (AUTO) 3.4 % (0.9-2.9); HEMATOCRIT 28.7 % (42.0-54.0); HEMOGLOBIN 9.8 g/dL (13.5-18.0); LYMPHOCYTES # (AUTO) 4.1 X10^3/uL (1.3-2.9); LYMPHOCYTES % (AUTO) 20.9 % (21.0-51.0); MEAN CORPUSCULAR HEMOGLOBIN 30.3 pg (27.0-34.0); MEAN CORPUSCULAR HGB CONC 34.1 g/dL (33.0-35.0); MEAN CORPUSCULAR VOLUME 88.7 fL (80.0-100.0); MEAN PLATELET VOLUME 7.6 fL (7.4-11.0); MONOCYTES # (AUTO) 2.8 x10^3/uL (0.3-0.8); MONOCYTES % (AUTO) 14.4 % (0.0-13.0); NEUTROPHILS # (AUTO) 11.8 x10^3/uL (2.2-4.8); RED BLOOD COUNT 3.24 X10^6/uL (4.7-6.0); RED CELL DISTRIBUTION WIDTH 14.3 % (11.6-16.5); WHITE BLOOD COUNT 19.7 X10^3/uL (3.6-10.0)
[2022-08-21 04:37] LABS: ALANINE AMINOTRANSFERASE 7 Units/L (12-78); ALBUMIN 1.1 g/dL (3.4-5.0); ALKALINE PHOSPHATASE 77 Units/L (46-116); ASPARTATE AMINO TRANSFERASE 24 Units/L (15-37); BLOOD UREA NITROGEN 12 mg/dL (7-18); CALCIUM 7.7 mg/dL (8.5-10.1); CARBON DIOXIDE 32.1 mmol/L (21-32); CHLORIDE 105 mmol/L (98-107); COR NA(FOR HYPERGLY) 140 mmol/L (136-145); CREATININE 0.94 mg/dL (0.70-1.30); SODIUM 140 mmol/L (136-145); TOTAL PROTEIN 5.3 g/dL (6.4-8.2); eGFR NON BLACK RACES > 60 (>60)
[2022-08-21] MEDS: ZOSYN VIAL 3.375 GRAMS 3.375 G in NS 100 ML IV 100 ML IV SCH ×3 (05:15→22:09)
[2022-08-21] MEDS: NS 1,000 ML IV 1,000 ML IV SCH ×3 (05:16→20:13)
[2022-08-21] MEDS: XOPENEX 1.25 MG/3 ML NEBULE NEB SCH ×5 (06:13→18:14)
[2022-08-21] MEDS: ROBITUSSIN DM PO SCH ×4 (08:17→20:16)
[2022-08-21] MEDS: COLACE CAP 100 MG PO SCH ×2 (08:17→20:16)
[2022-08-21] MEDS: MILK OF MAGNESIA PO SCH ×2 (08:17→20:17)
[2022-08-21] MEDS: NICOTINE PATCH TD SCH (08:17)
[2022-08-21] MEDS: NEURONTIN CAP 400 MG PO SCH ×2 (08:17→20:16)
[2022-08-21] MEDS: PriLOSEC PO SCH (08:18)
[2022-08-21] MEDS: MOBIC TAB 15 MG PO SCH (08:18)
[2022-08-21] MEDS: CLARITIN PO SCH (08:19)
[2022-08-21] MEDS: DILANTIN CAP 100 MG EXT REL PO SCH ×2 (08:19→20:16)
[2022-08-21] MEDS: BUSPAR PO SCH ×2 (08:20→20:17)
[2022-08-21] MEDS: LOVENOX INJ 40 MG SYR SC SCH (08:20)
[2022-08-21] MEDS: LEVAQUIN PREMIX IV 500 MG 500 MG/100 ML BAG IV SCH (08:26)
[2022-08-21] MEDS: PULMICORT NEB TX 0.5 MG NEB SCH ×2 (08:33→20:00)
[2022-08-21] MEDS: BROVANA IN SCH ×2 (08:33→20:00)
[2022-08-21] MEDS: MORPHINE SULFATE INJ 2 MG INJ IVP PRN (09:35)
[2022-08-21] MEDS: ZITHROMAX INJ 500 MG VIAL 500 MG in NS 250 ML IV 250 ML IV SCH (10:08)
[2022-08-21] MEDS ORDERED: ZOFRAN INJ 4 MG VIAL IVP PRN (12:13)
[2022-08-21] MEDS ORDERED: ZOFRAN INJ 4 MG VIAL ONE (12:20)
[2022-08-21] MEDS: FLOMAX PO SCH (20:16)
[2022-08-21] MEDS: ARICEPT TAB 10 MG PO SCH (20:17)
[2022-08-22] MEDS: XOPENEX 1.25 MG/3 ML NEBULE NEB SCH ×2 (00:10→05:05)
[2022-08-22 04:54] LABS: BASOPHILS # (AUTO) 0.3 X10^3/uL (0.0-0.1); BASOPHILS % (AUTO) 1.8 % (0.2-1.0); EOSINOPHILS # (AUTO) 0.7 x10^3/uL (0.0-0.2); EOSINOPHILS % (AUTO) 4.2 % (0.9-2.9); HEMATOCRIT 29.7 % (42.0-54.0); HEMOGLOBIN 9.9 g/dL (13.5-18.0); LYMPHOCYTES % (AUTO) 22.3 % (21.0-51.0); MEAN CORPUSCULAR HEMOGLOBIN 29.6 pg (27.0-34.0); MEAN CORPUSCULAR HGB CONC 33.2 g/dL (33.0-35.0); MEAN CORPUSCULAR VOLUME 89.1 fL (80.0-100.0); MEAN PLATELET VOLUME 7.5 fL (7.4-11.0); MONOCYTES # (AUTO) 2.4 x10^3/uL (0.3-0.8); MONOCYTES % (AUTO) 13.6 % (0.0-13.0); NEUTROPHILS # (AUTO) 10.4 x10^3/uL (2.2-4.8); NEUTROPHILS % (AUTO) 58.1 % (42.0-75.0); RED BLOOD COUNT 3.34 X10^6/uL (4.7-6.0); RED CELL DISTRIBUTION WIDTH 14.5 % (11.6-16.5)
[2022-08-22] MEDS: ZOSYN VIAL 3.375 GRAMS 3.375 G in NS 100 ML IV 100 ML IV SCH (05:02)
[2022-08-22 05:07] LABS: ALANINE AMINOTRANSFERASE < 6 Units/L (12-78); ALKALINE PHOSPHATASE 73 Units/L (46-116); ASPARTATE AMINO TRANSFERASE 24 Units/L (15-37); BLOOD UREA NITROGEN 10 mg/dL (7-18); CARBON DIOXIDE 32.7 mmol/L (21-32); CHLORIDE 106 mmol/L (98-107); COR CA(FOR HYPOALB) 10.4 mg/dL (8.5-10.1); CREATININE 0.92 mg/dL (0.70-1.30); SODIUM 141 mmol/L (136-145); TOTAL PROTEIN 5.2 g/dL (6.4-8.2); eGFR NON BLACK RACES > 60 (>60)
[2022-08-22 05:24] LABS: BAND NEUTROPHILS % 3 % (0-10); BASOPHILS % (MANUAL) 1 % (0-1); METAMYELOCYTES % 1; PLATELET MORPHOLOGY COMMENT NORMAL (NORMAL); TARGET CELLS 1+
[2022-08-22] MEDS: NS 1,000 ML IV 1,000 ML IV SCH ×2 (05:57→09:10)
--- NOTE | 2022-08-22 06:14 | RAD ---
HISTORYPNEUMONIA, SOBSTUDYCHEST, 1 VIEWCOMPARISONCT chest from 08/20/2022 and chest radiograph 08/19/2022.TECHNIQUEPA or AP view of the chestFINDINGSCardiac and mediastinal contours are within normal limits. Lungs are hyperexpanded with interstitial opacities and architectural distortion there is a moderate right and small left pleural effusion with associated airspace opacities. This is similar on the right and worse on the left compared to prior radiograph. No pneumothorax.IMPRESSIONModerate right and small left pleural effusions. Associated airspace opacities consistent with pneumonia. Recommend follow up imaging to document resolution after appropriate treatment.Electronically signed by: John Matute (Aug 22, 2022 06:13:48)
[2022-08-22] MEDS: NICOTINE PATCH TD SCH (08:39)
[2022-08-22] MEDS: MOBIC TAB 15 MG PO SCH (08:40)
[2022-08-22] MEDS: PriLOSEC PO SCH (08:40)
[2022-08-22] MEDS: LEVAQUIN PREMIX IV 500 MG 500 MG/100 ML BAG IV SCH (08:40)
[2022-08-22] MEDS: BUSPAR PO SCH (08:40)
[2022-08-22] MEDS: ROBITUSSIN DM PO SCH (08:40)
[2022-08-22] MEDS: CLARITIN PO SCH (08:40)
[2022-08-22] MEDS: COLACE CAP 100 MG PO SCH (08:41)
[2022-08-22] MEDS: DILANTIN CAP 100 MG EXT REL PO SCH (08:41)
[2022-08-22] MEDS: ZITHROMAX INJ 500 MG VIAL 500 MG in NS 250 ML IV 250 ML IV SCH (08:42)
[2022-08-22] MEDS: NEURONTIN CAP 400 MG PO SCH (08:42)
[2022-08-22] MEDS: LOVENOX INJ 40 MG SYR SC SCH (08:43)
[2022-08-22] MEDS: MILK OF MAGNESIA PO SCH (08:44)
[2022-08-22] MEDS: BROVANA IN SCH (08:44)
[2022-08-22] MEDS: PULMICORT NEB TX 0.5 MG NEB SCH (08:44)
[2022-08-22 10:34] VITALS: BP 120/71
== END 2022-08-22 10:35 | disposition short-term general hospital (02) | DRG 871 ==
LOC: ICU → OBSVTOIN 11:27
PROVIDERS: ADMIT Internal Medicine; ATTEND Internal Medicine
DX: J44.9 Chronic obstructive pulmonary disease, unspecified; R53.1 Weakness; J96.01 Acute respiratory failure with hypoxia; I95.89 Other hypotension; R65.20 Severe sepsis without septic shock; R62.7 Adult failure to thrive; N17.8 Other acute kidney failure; I10 Essential (primary) hypertension; Z20.822 Contact with and (suspected) exposure to COVID-19; Z66 Do not resuscitate; R91.1 Solitary pulmonary nodule; J18.8 Other pneumonia, unspecified organism; R63.4 Abnormal weight loss; J90 Pleural effusion, not elsewhere classified; A41.89 Other specified sepsis